=== PATIENT | female | born 1980 | race Caucasian/White ===

== ENCOUNTER → 2016-07-20 | Outpatient (CLI) | payer OTHER ==
--- NOTE | ~2016-07-20 | CR142 ---
[facility]. [facility] A Service of [facility] & [facility] RADIOLOGY TEXT RESULTS PATIENT: NETTA HOLT LOCATION: SRA : [birth year] UNIT #: [id number] AGE: [address]: Netta Aranda SEX: F ORDER DR: [id number] [address] [id number] O MR#: [id number] Acc #: [id number] NAME: NETTA HOLT : 1980 SEX: F STUDY DATE/TIME: 07/20/2016 10:22 [facility] ROOM: STUDY DESCRIPTION: CR Hand Min 3 Views Rt Attending Physician: Netta Aranda A.P.R.N. Referring Physician: Netta Aranda A.P.R.N. Ordering Physician: Netta Aranda A.P.R.N. Primary Care Physician: Netta Aranda A.P.R.N. MEDICAL IMAGING REPORT This report is preliminary unless electronic signature is present. EXAM Right hand, 07/20/2016, [facility]. HISTORY 36-year-old female with small knots in fingers, joint pain, symptoms chronic. No known injury. FINDINGS Three views of the right hand demonstrate normal mineralization with an intact cortex throughout. Small joints are preserved with no joint space narrowing, joint calcinosis, or cystic erosions. No soft tissue swelling. IMPRESSION Negative right hand. Dictated by... Yonathan Aguilera M.D. THIS IS AN ELECTRONICALLY VERIFIED REPORT Yonathan Aguilera M.D. at 07/20/2016 2:09 PM ZOILA/darwin TD: 07/20/2016 13:51 JOB #: [id number] MEDICAL IMAGING REPORT Page 1 of 1
== END | disposition home or self-care (01) ==
LOC: SRAD 09:59
DX: M25.541 Pain in joints of right hand (principal)
CPT/HCPCS: 73130